=== PATIENT | female | born 1990 | race African-American/Black ===

== ENCOUNTER 2018-01-18 11:04 | Emergency (ER) | payer OTHER ==
[~2018-01-18] VITALS: Ht 175.3 cm; Wt 76.0 kg
[2018-01-18 11:30] VITALS: BP 134/83
[2018-01-18] MEDS ORDERED: IBUPROFEN 600MG TABLET PO STA (11:34)
== END 2018-01-18 13:41 | disposition left against medical advice (07) ==
LOC: ER 11:37
DX: N63.20 Unspecified lump in the left breast, unspecified quadrant (principal); R07.9 Chest pain, unspecified; R06.02 Shortness of breath; R11.2 Nausea with vomiting, unspecified; F17.200 Nicotine dependence, unspecified, uncomplicated; F12.10 Cannabis abuse, uncomplicated
CPT/HCPCS: 93005; 99283

== ENCOUNTER 2020-06-21 12:59 | Observation (INO) | payer OTHER ==
[~2020-06-21] VITALS: Ht 175.3 cm; Wt 97.0 kg
[2020-06-21 13:01] VITALS: BP 122/79
[2020-06-21 14:12] LABS: CLARITY URINE CLOUDY (CLEAR); COLOR URINE YELLOW (YELLOW); KETONES URINE NEGATIVE (NEGATIVE); LEUKOCYTE ESTERASE URINE 2+ (NEGATIVE); NITRITE URINE NEGATIVE (NEGATIVE); OCCULT BLOOD URINE NEGATIVE (NEGATIVE); PROTEIN URINE NEGATIVE (NEGATIVE); SPECIFIC GRAVITY URINE 1.014 (1.005-1.030)
== END 2020-06-21 14:54 | disposition home or self-care (01) ==
LOC: ER 12:59 → 8 EST LDRP 13:17
PROVIDERS: ADMIT Obstetrics & Gynecology; ATTEND Obstetrics & Gynecology
DX: O26.893 Other specified pregnancy related conditions, third trimester (principal); O99.891 Other specified diseases and conditions complicating pregnancy; R51.9 Headache, unspecified; R10.9 Unspecified abdominal pain; M54.5 Low back pain; Z3A.28 28 weeks gestation of pregnancy
CPT/HCPCS: 59025; 76805; 81003; 87077; 87086; 87186; 99281; G0378

== ENCOUNTER 2020-08-09 09:35 | Observation (INO) | payer OTHER ==
[~2020-08-09] VITALS: Ht 175.3 cm; Wt 91.6 kg
[2020-08-09 10:36] LABS: CLARITY URINE CLEAR (CLEAR); COLOR URINE YELLOW (YELLOW); KETONES URINE NEGATIVE (NEGATIVE); LEUKOCYTE ESTERASE URINE 3+ (NEGATIVE); NITRITE URINE NEGATIVE (NEGATIVE); OCCULT BLOOD URINE NEGATIVE (NEGATIVE); PROTEIN URINE NEGATIVE (NEGATIVE); SPECIFIC GRAVITY URINE 1.006 (1.005-1.030); UROBILINOGEN URINE 0.2 E.U./dL (0.2-1.0)
[2020-08-09] MEDS ORDERED: DEXT 5%/LACTATED RINGERS 1,000 ML IV SCH (11:30)
== END 2020-08-09 13:37 | disposition home or self-care (01) ==
LOC: 8 EST LDRP 09:35
PROVIDERS: ADMIT Obstetrics & Gynecology; ATTEND Obstetrics & Gynecology
DX: O26.893 Other specified pregnancy related conditions, third trimester (principal); O62.9 Abnormality of forces of labor, unspecified; R10.9 Unspecified abdominal pain; Z3A.35 35 weeks gestation of pregnancy
CPT/HCPCS: 59025; 81003; 87077; 87086; 87186; 96360; 96361; G0378; 99281; J7121

== ENCOUNTER 2020-08-11 14:43 | Observation (INO) | payer OTHER | END 2020-08-11 15:34 | disposition home or self-care (01) | LOC: 8 EST LDRP 14:43 | PROVIDERS: ADMIT Obstetrics & Gynecology; ATTEND Obstetrics & Gynecology | DX: O36.8130 Decreased fetal movements, third trimester, not applicable or unspecified (principal); Z3A.35 35 weeks gestation of pregnancy | CPT/HCPCS: 59025; G0378; 99281 ==

== ENCOUNTER 2020-08-22 10:52 | Observation (INO) | payer OTHER ==
[~2020-08-22] VITALS: Ht 175.3 cm; Wt 92.1 kg
[2020-08-22] MEDS ORDERED: LACTATED RINGERS 1,000 ML IV SCH (11:30)
== END 2020-08-22 13:00 | disposition home or self-care (01) ==
LOC: 8 EST LDRP 10:52
PROVIDERS: ADMIT Obstetrics & Gynecology; ATTEND Obstetrics & Gynecology
DX: O26.893 Other specified pregnancy related conditions, third trimester (principal); R10.9 Unspecified abdominal pain; Z3A.36 36 weeks gestation of pregnancy
CPT/HCPCS: 99281; G0378; 59025; J7120

== ENCOUNTER 2021-08-19 21:34 | Observation (INO) | payer OTHER ==
[~2021-08-19] VITALS: Ht 175.3 cm; Wt 96.2 kg
[2021-08-19] MEDS ORDERED: LACTATED RINGERS 1,000 ML IV SCH (22:00)
[2021-08-19] MEDS ORDERED: PREN1TAB78 PO (22:00)
[2021-08-19] MEDS ORDERED: TERBUTALINE SULFATE 1MG/ML VIAL SUBCUT PRN (22:00)
[2021-08-19 22:38] LABS: BASOPHILS % 0.7 % (0.0-2.0); EOSINOPHILS % 0.4 % (0.0-5.0); HEMATOCRIT. 28.4 % (36.0-48.0); HEMOGLOBIN. 9.7 g/dL (12.0-16.0); LYMPHOCYTES % 41.4 % (20.0-50.0); MEAN CORPUSCULAR HEMOGLOBIN 29.4 pg (28.0-32.0); MEAN CORPUSCULAR VOLUME 86.5 fL (81.0-99.0); MEAN PLATELET VOLUME 7.9 fl (7.4-10.4); NEUTROPHILS % 51.5 % (40.0-76.0); PLATELET 234 x1000/uL (130-400); RED BLOOD CELL COUNT 3.29 mill/uL (4.2-5.4); RED CELL DISTRIBUTION WIDTH 13.2 % (11.6-14.6)
[2021-08-19 22:48] LABS: CLARITY URINE CLOUDY (CLEAR); COLOR URINE YELLOW (YELLOW); KETONES URINE 3+ (NEGATIVE); LEUKOCYTE ESTERASE URINE 1+ (NEGATIVE); NITRITE URINE POSITIVE (NEGATIVE); OCCULT BLOOD URINE NEGATIVE (NEGATIVE); PROTEIN URINE TRACE (NEGATIVE); SPECIFIC GRAVITY URINE 1.015 (1.005-1.030)
[2021-08-19 22:54] LABS: INR 1.1; PROTHROMBIN TIME 11.6 sec (9.6-11.0)
[2021-08-19 23:39] LABS: CHLORIDE 110 mEq/L (98-107)
[2021-08-20] MEDS ORDERED: CEFAZOLIN 2,000 MG in DEXT 5% WATER 100 ML IV SCH ×2
[2021-08-20] MEDS ORDERED: ACETAMINOPHEN 325MG TABLET PO SCH (00:30)
[2021-08-20] MEDS ORDERED: DEXT 5%/0.45% NACL KCL 20MEQ/L 1,000 ML IV SCH (01:00)
[2021-08-20] MEDS ORDERED: ONDANSETRON HCL 4MG/2ML INJ IV PRN (01:30)
[2021-08-20] MEDS ORDERED: FOLI0.4T6 MT (07:13)
== END 2021-08-20 08:45 | disposition home or self-care (01) ==
LOC: 8 EST LDRP 21:34
PROVIDERS: ADMIT Obstetrics & Gynecology; ATTEND Obstetrics & Gynecology
DX: O62.9 Abnormality of forces of labor, unspecified (principal); O46.93 Antepartum hemorrhage, unspecified, third trimester; O26.893 Other specified pregnancy related conditions, third trimester; R10.2 Pelvic and perineal pain; Z79.01 Long term (current) use of anticoagulants; Z3A.31 31 weeks gestation of pregnancy
CPT/HCPCS: 36415; 59025; 76805; 76818; 80053; 81003; 85025; 85384; 85610; 85730; 96361; 96365; 96372; 96375; G0378; J0690; J2405; J3105; J7060; 99281

== ENCOUNTER 2021-09-28 23:55 | Observation (INO) | payer OTHER ==
[~2021-09-28] VITALS: Ht 175.3 cm; Wt 96.6 kg
[~2021-09-28 23:55] MED LIST: FOLI0.4T6 MT; PREN1TAB78 PO
== END 2021-09-29 00:55 | disposition home or self-care (01) ==
LOC: 8 EST LDRP 23:55
PROVIDERS: ADMIT Obstetrics & Gynecology; ATTEND Obstetrics & Gynecology
DX: O62.9 Abnormality of forces of labor, unspecified (principal); Z3A.36 36 weeks gestation of pregnancy
CPT/HCPCS: 59025; 99281; G0378; G0379

== ENCOUNTER 2023-01-02 02:07 | Emergency (ER) | payer OTHER ==
[~2023-01-02] VITALS: Ht 175.3 cm; Wt 86.0 kg
[2023-01-02 02:08] VITALS: BP 138/88
[2023-01-02 02:31] LABS: BASOPHILS % 1.2 % (0.0-2.0); EOSINOPHILS % 0.6 % (0.0-5.0); HEMATOCRIT. 36.3 % (36.0-48.0); HEMOGLOBIN. 11.9 g/dL (12.0-16.0); LYMPHOCYTES % 64.8 % (20.0-50.0); MEAN CORPUSCULAR HEMOGLOBIN 30.9 pg (28.0-32.0); MEAN PLATELET VOLUME 7.9 fl (7.4-10.4); MONOCYTES % 6.5 % (2.0-8.0); NEUTROPHILS % 26.9 % (40.0-76.0); PLATELET 311 x1000/uL (130-400); RED BLOOD CELL COUNT 3.86 mill/uL (4.2-5.4); RED CELL DISTRIBUTION WIDTH 17.5 % (11.6-14.6)
[2023-01-02 02:36] LABS: CHLORIDE 106 mEq/L (98-107)
== END 2023-01-02 04:29 | disposition left against medical advice (07) ==
LOC: ER 02:07
DX: Z53.21 Procedure and treatment not carried out due to patient leaving prior to being seen by health care provider (principal)
CPT/HCPCS: 36415; 80053; 85025; 99281

== ENCOUNTER 2025-03-25 15:41 | Emergency (ER) | payer OTHER ==
[~2025-03-25] VITALS: Ht 175.3 cm; Wt 86.2 kg
[2025-03-25 15:51] VITALS: O2SAT 98
[2025-03-25] MEDS: SODIUM CHLORIDE 0.9% 1,000 ML IV ONE (17:00)
[2025-03-25] MEDS ORDERED: ONDANSETRON HCL 4MG/2ML INJ IV ONE (17:00)
[2025-03-25 17:09] LABS: BASOPHILS % 1.1 % (0.0-2.0); EOSINOPHILS % 0.4 % (0.0-5.0); HEMATOCRIT. 30.7 % (36.0-48.0); HEMOGLOBIN. 10.1 g/dL (12.0-16.0); LYMPHOCYTES % 45.7 % (20.0-50.0); MEAN PLATELET VOLUME 7.7 fl (7.4-10.4); MONOCYTES % 4.9 % (2.0-8.0); NEUTROPHILS % 47.9 % (40.0-76.0); PLATELET 500 x1000/uL (130-400); RED BLOOD CELL COUNT 3.84 mill/uL (4.2-5.4); RED CELL DISTRIBUTION WIDTH 21.0 % (11.6-14.6)
[2025-03-25 17:20] LABS: INR 1.1
[2025-03-25 17:26] LABS: CREATININE 0.7 mg/dL (0.6-1.0); ETHANOL BLOOD 175 mg/dL (<10); UREA NITROGEN BLOOD 9 mg/dL (9-23)
[2025-03-25 17:28] LABS: ASPARTATE AMINOTRANSFERASE 32 IU/L (<34); BILIRUBIN TOTAL 0.5 mg/dL (0.1-1.0); PROTEIN TOTAL 7.2 g/dL (6.0-8.3)
[2025-03-25 17:43] LABS: B-HCG QUANTITATIVE 20558 mIU/mL (<6)
[2025-03-25] MEDS: ONDANSETRON HCL 4MG/2ML INJ IV NR (19:00)
[2025-03-25 19:30] VITALS: BP 130/83; PULSE 89; RESP 22; TEMP 36.8; O2SAT 98
[2025-03-25] MEDS ORDERED: DIPH25CA83 MT (19:36)
[2025-03-25] MEDS ORDERED: DOXY25TA61 MT (19:36)
[2025-03-25] MEDS ORDERED: PYRI25TA4 MT (19:36)
[2025-03-25] MEDS ORDERED: POTA-205 MT (19:39)
[2025-03-25] MEDS: POTASSIUM CHLORIDE 20MEQ TABLET SR PO ONE (19:50)
== END 2025-03-25 20:03 | disposition home or self-care (01) ==
LOC: ER 15:41
DX: O99.281 Endocrine, nutritional and metabolic diseases complicating pregnancy, first trimester (principal); F12.90 Cannabis use, unspecified, uncomplicated; O20.0 Threatened abortion; O21.9 Vomiting of pregnancy, unspecified; E87.6 Hypokalemia; O99.011 Anemia complicating pregnancy, first trimester; O16.1 Unspecified maternal hypertension, first trimester; D57.1 Sickle-cell disease without crisis; Z79.899 Other long term (current) drug therapy; Z3A.01 Less than 8 weeks gestation of pregnancy
CPT/HCPCS: 80053; 82010; 80320; 84702; 85025; 85610; 86850; 86900; 86901; 36415; 76801; 76817; 96360; 96361; 99284; J7030; Z7610 ×2; A4606; G0480

== ENCOUNTER 2025-04-21 17:12 | Emergency (ER) | payer MEDICAID, OTHER ==
[~2025-04-21] VITALS: Ht 188 cm; Wt 80.0 kg
[~2025-04-21 17:12] MED LIST changes: +DIPH25CA83 MT; +DOXY25TA61 MT; -FOLI0.4T6 MT; +POTA-205 MT; -PREN1TAB78 PO; +PYRI25TA4 MT
[2025-04-21 17:15] VITALS: BP 98/70; PULSE 107; RESP 16; TEMP 36.9; O2SAT 100
== END 2025-04-21 18:54 | disposition left against medical advice (07) ==
LOC: ER 17:12
DX: F41.9 Anxiety disorder, unspecified (principal); I10 Essential (primary) hypertension; Z79.899 Other long term (current) drug therapy; Z53.21 Procedure and treatment not carried out due to patient leaving prior to being seen by health care provider

== ENCOUNTER 2025-05-03 16:15 | Emergency (ER) | payer MEDICAID, OTHER ==
[~2025-05-03] VITALS: Ht 172.7 cm; Wt 63.0 kg
[2025-05-03 16:19] VITALS: O2SAT 98
[2025-05-03] MEDS: SODIUM CHLORIDE 0.9% 1,000 ML IV ONE ×2 (16:59→19:30)
[2025-05-03] MEDS: PANTOPRAZOLE SODIUM 40 MG/VIAL IV ONE (16:59)
[2025-05-03 17:38] LABS: BASOPHILS % 1.5 % (0.0-2.0); EOSINOPHILS % 0.4 % (0.0-5.0); HEMATOCRIT. 34.0 % (36.0-48.0); HEMOGLOBIN. 11.5 g/dL (12.0-16.0); LYMPHOCYTES % 59.8 % (20.0-50.0); MEAN PLATELET VOLUME 7.6 fl (7.4-10.4); MONOCYTES % 5.9 % (2.0-8.0); NEUTROPHILS % 32.4 % (40.0-76.0); PLATELET 306 x1000/uL (130-400); RED BLOOD CELL COUNT 3.96 mill/uL (4.2-5.4); RED CELL DISTRIBUTION WIDTH 19.7 % (11.6-14.6)
[2025-05-03 17:51] LABS: INR 1.2
[2025-05-03 18:04] LABS: B-HCG QUANTITATIVE 5 mIU/mL (<6); CREATININE 0.7 mg/dL (0.6-1.0); UREA NITROGEN BLOOD 8 mg/dL (9-23)
[2025-05-03 18:06] LABS: ASPARTATE AMINOTRANSFERASE 148 IU/L (<34); BILIRUBIN DIRECT 0.2 mg/dL (<=3.0); BILIRUBIN TOTAL 0.6 mg/dL (0.1-1.0); PROTEIN TOTAL 7.1 g/dL (6.0-8.3)
[2025-05-03] MEDS: ONDANSETRON HCL 4MG/2ML INJ IV ONE (19:30)
[2025-05-03] MEDS: POTASSIUM CHLORIDE 20MEQ/PACKET PO ONE (19:30)
[2025-05-03] MEDS ORDERED: ONDA4TAB50 MT (19:40)
[2025-05-03 19:52] VITALS: BP 114/67; PULSE 100; RESP 19; TEMP 36.8; O2SAT 99
[2025-05-03] MEDS ORDERED: IOHEXOL-350 100 ML BOTTLE ONE (22:33)
== END 2025-05-03 20:02 | disposition home or self-care (01) ==
LOC: ER 16:15 → CMPBEDREQ 05-04 08:00
DX: E86.0 Dehydration (principal); D57.1 Sickle-cell disease without crisis; R11.10 Vomiting, unspecified; R06.02 Shortness of breath; Z87.59 Personal history of other complications of pregnancy, childbirth and the puerperium
CPT/HCPCS: 99285; 71275; 74174; 96374; 96361; 96375; 80076; 80048; 82962; 84702; 83880; 83605; 83690; 85025; 85044; 85610; 85730; 36415; 70450; 93005; Q9967; J2405; J2470; J7030; A4606